=== PATIENT | female | born 1965 | race Caucasian/White ===

== ENCOUNTER 2019-03-26 12:15 | Inpatient (IN) | payer OTHER, SELFPAY ==
[~2019-03-26] VITALS: Ht 162.6 cm; Wt 131.2 kg
[~2019-03-26 12:15] MED LIST: ALKATAB24 PO; AMBI5TAB OR; ANAS1TAB PO; AUGM875T27 PO; CIPR-249 PO; CIPR500T4 OR; CLEO150C PO; COUM10TA OR; COUM1TAB17 OR; DOXY100C PO; FLAG500T OR; IBUP200C25 PO; LORT5TAB PO; MELA300T PO; MELA5TAB31 PO; METR-265 PO; NAPR1TAB41 PO; Nystatin/Triamcinolone TOP; PERC5TAB8 OR; TYLE325T5 PO; VENL37.598 PO; VENL37TA FT; [UNRECOGNIZED DRUG - CODE] PO; oxycodone hcl OR
[2019-03-26] MEDS ORDERED: IBUPROFEN 600 MG TAB PO ONE (12:30)
[2019-03-26 13:52] LABS: BASO % 0.1 % (0.0-1.0); EOS # 0.1 10^3/uL (0.0-0.50); EOS % 0.7 % (0.0-3.0); HEMATOCRIT 40.5 % (36.0-47.0); HEMOGLOBIN 13.1 g/dl (12.0-15.5); LYMPH # 0.7 10^3/uL (1.5-4.5); LYMPH % 7.9 % (24.0-44.0); MEAN CORPUSCULAR HEMOGLOBIN 28.1 pg (27.0-33.0); MEAN CORPUSCULAR HGB CONC 32.3 g/dl (32.0-36.5); MEAN CORPUSCULAR VOLUME 86.9 fl (80.0-96.0); MONO # 0.4 10^3/uL (0.0-0.8); NEUTROPHILS # 7.6 10^3/uL (1.8-7.7); PLATELET COUNT, AUTOMATED 245 10^3/uL (150-450); RED BLOOD COUNT 4.66 10^6/uL (4.00-5.40); WHITE BLOOD COUNT 8.8 10^3/uL (4.0-10.0)
[2019-03-26 14:18] LABS: BLOOD UREA NITROGEN 11 MG/DL (7-18); C REACTIVE PROTEIN QUANTITATIV 5.11 MG/DL (0.00-0.30); CARBON DIOXIDE LEVEL 28 MEQ/L (21-32); CHLORIDE LEVEL 107 MEQ/L (98-107); CREATININE FOR GFR 0.76 MG/DL (0.55-1.30); GLOMERULAR FILTRATION RATE > 60.0 (>51); GLUCOSE, FASTING 87 MG/DL (70-100); POTASSIUM SERUM 3.8 MEQ/L (3.5-5.1); SODIUM LEVEL 140 MEQ/L (136-145)
[2019-03-26 14:28] LABS: ERYTHROCYTE SEDIMENTATION RATE 13 mm/hr (0-30)
[2019-03-26] MEDS ORDERED: VANCOMYCIN HCL 1,000 MG, VIAL MATE ADAPTER 1 EACH in D5W 250 ML IV ONE (15:30)
[2019-03-26] MEDS ORDERED: ACETAMINOPHEN 325 MG TAB PO ONE (15:30)
[2019-03-26] MEDS ORDERED: NS 1,000 ML IV ONE ×2 (15:30)
[2019-03-26] MEDS ORDERED: ISOVUE-370 76% 100ML VIAL (Q9967) As Ordered ONE (15:48)
[2019-03-26] MEDS ORDERED: MEDI1GEL5 TOP (15:58)
[2019-03-26] MEDS ORDERED: NORC1TAB8 PO (15:58)
[2019-03-26] MEDS ORDERED: ACET1TAB55 PO (15:58)
[2019-03-26] MEDS ORDERED: ALKACAP4 PO (15:58)
[2019-03-26] MEDS ORDERED: MORPHINE 4 MG/ML 1ML VIAL/SYRINGE (J2270) IV ONE (16:00)
--- NOTE | 2019-03-26 17:18 | REP ---
CT chest with IV contrast: History: Right breast pain. Aggressive cellulitis. Rule out abscess or mass. Right breast cancer history E status post lumpectomy radiation therapy and chemotherapy. CT contrast dose: 75 ml of intravenous Isovue 370. CT findings: Digital preliminary pneumatic tube operator radiograph demonstrates surgical clips in the right axillary and breast soft tissues. The axial CT images demonstrate a diffuse pattern of dermal thickening in the visualized right breast soft tissues anteriorly. A good portion of the lateral aspect of the right breast is excluded from the field of view of the chest CT. No abscess is appreciated. No axillary adenopathy is seen. No chest wall abscess or inflammation is seen. The visualized breast tissue is fat replaced and unremarkable apart from the apart from the surgical clips and a few benign calcifications. There is no evidence of pleural or pericardial effusion. No hilar or mediastinal mass or adenopathy is seen. There is some left coronary artery vascular calcification noted. Mild diffuse fatty infiltration of the liver is present. No adrenal lesion is seen. The visualized upper abdominal structures are otherwise unremarkable. The lung chambers are clear except for some minimal subpleural fibrosis along the right anterior chest wall. This may be post radiation change. There is a borderline sized lymph node in the left axilla measuring 1.6 x 1.0 x 1.5 cm. No bony destructive lesion is seen. Impression: Dermal thickening in the visualized right breast soft tissues. No evidence of abscess or right axillary adenopathy. Borderline sized left axillary lymph node, 1.6 cm in greatest diameter. Subpleural fibrosis mild in degree in the right lung anteriorly. Otherwise no acute disease. Electronically Signed by Ajit Day MD 03/26/2019 08:23 P
[2019-03-26] MEDS ORDERED: ANEXSIA, NORCO 7.5MG/325MG TABLET(HYDROCODONE/APAP) PO PRN (18:00)
[2019-03-26] MEDS ORDERED: ACETAMINOPHEN TAB 650MG DOSE (2X325MG) PO PRN (18:00)
[2019-03-26] MEDS ORDERED: ONDANSETRON 4MG/2ML VIAL (J2405) IV PRN (18:15)
--- NOTE | 2019-03-26 18:34 | PHACANCOPD ---
PHARMACY VANCOMYCIN DOSING Pt Demographics Demographics Patient Age:53 , Weight:118.180 , Gender: female Adjusted Body Weight Date: 03/26/19, Adjusted Body Weight: [80] Kg Events Past 24 Hours Events Past 24 Hours: YES: Fever; NO: Dialysis, Diuretic Therapy, Change in CrCl, Elevation in WBC, Pending Diagnostics, Pending Procedures, Other Vancomycin Vancomycin indication: R breast cellulitis Vancomycin Target Ranges: 15-20 mcg/ml Vancomycin Load Y/N: Yes Load Dose Date Time Vancomycin Load Dose: 1000mg Date: 03/26 Time: ~16:00 Vancomycin Dose Date: 03/26/19. Current Vancomycin Dose: [1g IV q8h @20] Intermittent Dosing?: No Labs Labs Item Value Date Time C-Reactive Protein, Quantitative 5.11 MG/DL H 03/26/19 1327 Creatinine 0.76 MG/DL 03/26/19 1327 White Blood Count 8.8 10^3/uL 03/26/19 1327 Vital Signs Label Value Date Time Patient Temperature 102.8 degrees F 03/26/19 1216 Temperature Source Oral 03/26/19 1216 Patient Temperature 101.5 degrees F 03/26/19 1341 Temperature Source Oral 03/26/19 1341 Micro Microbiology 03/26/19 Blood Culture, Received Pending 03/26/19 Blood Culture, Received Pending Creatinine Clearance Date:03/26/19. Creatinine Clearance: [>100 ml/min using adjusted BW]. Assessment and Plan Maintaining Current Dose?: Yes Reason for dose change: No Dose Change Pharmacist Note Pharmacist Note Date: 03/26/19. Pharmacist note: pt has been started on Vancomycin for right breast cellulitis. Based on prior consults, she received vancomycin 1g in the ER this afternoon, followed by 1g IV q8h to begin ~4 hours later. Blood cultures are pending. We will continue to monitor and make adjustments as necessary. Ravi Avalos Pharm.D. Mar 26, 2019 18:34
--- NOTE | 2019-03-26 19:22 | HPEPDOC ---
General Date of Admission Mar 26, 2019 at 17:56 Date of Service: Mar 26, 2019 Chief Complaint The patient is a 53-year-old female admitted with a reason for visit of Cellulitis Of Female Breast/ Sirs. Source: Patient Exam Limitations: No limitations Timing/Duration: Day(s) Severity: Moderate Associated Symptoms: Fever, Chills, Nausea History of Present Illness This is a 53-year-old female with a history of breast cancer to her right breast. She underwent lumpectomy, chemotherapy and radiation in 2010. Since then she has had intermittent episodes of recurrent cellulitis to the right breast. She again presents with fever, chills, nausea and itching. She has significant erythema to the right breast. She thinks this may have started from a tiny cut injury from her brassiere. Home Medications Scheduled Melatonin (Melatonin) 5 Mg Tab, 5 MG PO QHS, (Reported) Scheduled PRN Acetaminophen (Acetaminophen) 325 Mg Tablet, 650 MG PO Q6H PRN for PAIN, (Reported) Dm/PE/Acetaminophen/Doxylamine ([place]ang[place] Plus Night Cap) 1 Each Capsule, 2 CAP PO QHS PRN for SLEEP, (Reported) Honey (Medihoney) 15 Ml Gel..ml., 1 APLCT TOP DAILY PRN for WOUND HEALING, (Reported) APPLIED UNDER BREAST Hydrocodone/Acetaminophen ([place] 7.5-325 Tablet) 1 Each Tablet, 1 TAB PO DAILY PRN for PAIN, (Reported) Allergies Coded Allergies: No Known Allergies (Verified , 02/27/11) Past Medical History Medical History Past medical history is remarkable for the aforementioned breast cancer diagnosed and treated in 2010, diverticular disease, history of DVT. Surgical History Surgical history includes the aforementioned lumpectomy, in the past. 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 A-FIB/CHADSVASC A-FIB History Current/History of A-Fib/PAF?: No Current PO Anticoag Therapy: No Review of Systems Other systems 10 system review is otherwise negative except as stated in the brief presentation Physical Examination General Exam: Positive: Alert, Cooperative Eye Exam: Positive: PERRLA, Conjunctiva & lids normal ENT Exam: Positive: Atraumatic, Mucous membr. moist/pink, Pharynx Normal, Tongue Midline Neck Exam: Positive: Supple; Negative: JVD, thyromegaly, +2 carotid pulse wo bruit, Lymphadenopathy, Other Chest Exam: Positive: Clear to auscultation, Normal air movement Heart Exam: Positive: Rate Normal, Regular Rhythm, Normal S1, Normal S2; Negative: Murmurs, Rubs Abdomen Exam: Positive: Normal bowel sounds, Soft, Other (patient has significant central morbid obesity); Negative: Tenderness, Hepatospenomegaly Extremity Exam: Positive: Normal pulses; Negative: Clubbing, Cyanosis, Edema Neuro Exam: Positive: Normal Speech, Cranial Nerves 3-12 NL Psych Exam: Positive: Mental status NL Other physical findings On breast exam, with directed attention to the right breast the breast is circumferentially erythematous. I do not appreciate induration. There is no drainage from the nipple. The erythema extends downward to her right abdomen. There is no streaking toward the axilla. There is no axillary adenopathy, but patient has had lymph node resection. There is about a 2-3 mm shallow cut under the right breast that represents injury from her brassiere. There is no bleeding or drainage from that site. The left breast is normal; there is no erythema or rash or lesions. There are no palpable dominant lesions to either breast. There is some surgical scarring to the right breast to the upper outer quadrant at the site of her prior lumpectomy. Vital Signs Vital Signs Date Time Temp Pulse Resp B/P (MAP) Pulse Ox O2 Delivery O2 Flow Rate FiO2 03/26/19 17:10 99.9 03/26/19 16:57 28 95 03/26/19 15:25 03/26/19 12:16 120 Room Air Laboratory Data Labs 24H Laboratory Tests 2 03/26/19 13:27: Immature Granulocyte % (Auto) 0.3, White Blood Count 8.8, Red Blood Count 4.66, Hemoglobin 13.1, Hematocrit 40.5, Mean Corpuscular Volume 86.9, Mean Corpuscular Hemoglobin 28.1, Mean Corpuscular Hemoglobin Concent 32.3, Red Cell Distribution Width 14.0, Platelet Count 245, Neutrophils (%) (Auto) 86.0H, Lymphocytes (%) (Auto) 7.9L, Monocytes (%) (Auto) 5.0, Eosinophils (%) (Auto) 0.7, Basophils (%) (Auto) 0.1, Neutrophils # (Auto) 7.6, Lymphocytes # (Auto) 0.7L, Monocytes # (Auto) 0.4, Eosinophils # (Auto) 0.1, Basophils # (Auto) 0.0, Nucleated Red Blood Cells % (auto) 0.0, Erythrocyte Sedimentation Rate 13, Anion Gap 5L, Glomerular Filtration Rate > 60.0, Blood Urea Nitrogen 11, Creatinine 0.76, Sodium Level 140, Potassium Level 3.8, Chloride Level 107, Carbon Dioxide Level 28, Calcium Level 9.0, C-Reactive Protein, Quantitative 5.11H CBC/BMP Laboratory Tests 03/26/19 13:27 Red Blood Count 4.66, Mean Corpuscular Volume 86.9, Mean Corpuscular Hemoglobin 28.1, Mean Corpuscular Hemoglobin Concent 32.3, Red Cell Distribution Width 14.0, Neutrophils (%) (Auto) 86.0 H, Lymphocytes (%) (Auto) 7.9 L, Monocytes (%) (Auto) 5.0, Eosinophils (%) (Auto) 0.7, Basophils (%) (Auto) 0.1, Neutrophils # (Auto) 7.6, Lymphocytes # (Auto) 0.7 L, Monocytes # (Auto) 0.4, Eosinophils # (Auto) 0.1, Basophils # (Auto) 0.0, Calcium Level 9.0 Microbiology Microbiology 03/26/19 Blood Culture, Received Pending 03/26/19 Blood Culture, Received Pending Assessment/Plan Right breast cellulitis--this has been recurrent. She is again being initiated on treatment with IV antibiotics in the form of vancomycin as this has been effective in the past. Blood cultures have been obtained. She does not require any wound care. Systemic inflammatory response syndrome.She does not have leukocytosis, but she did have fever and tachycardia. She has received aggressive IV fluid hydration. We will monitor her lactic acid and her blood cultures. C-reactive protein was noted to be elevated at 5.11. Plan / VTE VTE Prophylaxis Ordered?: Yes Plan IVF: Initiate, Continue Diet: Continue Current Activity: Continue Current, Encourage Ambulation Medications: Start Antibiotics Diagnostics: Check Labs, Repeat Labs in AM Anticipated Discharge: Home Advanced Directives: Health Care Proxy (HCP) (the patient wishes to be full CODE STATUS.) LAUREN LIZ MD Mar 26, 2019 19:22
[2019-03-26] MEDS ORDERED: RAMELTEON 8 MG TAB (ROZEREM) PO SCH (21:00)
[2019-03-26] MEDS: NS 1,000 ML IV SCH (21:17)
[2019-03-26 22:00] VITALS: BP 132/89
[2019-03-26] MEDS: ENOXAPARIN 40 MG/0.4 ML SYRINGE (J1650) SC SCH (22:14)
[2019-03-26] MEDS: VANCOMYCIN HCL 1,000 MG, VIAL MATE ADAPTER 1 EACH in D5W/0.2% SODIUM CHLORIDE 250 ML IV SCH (22:15)
[2019-03-27 02:00] VITALS: BP 128/88
[2019-03-27] MEDS: IBUPROFEN 400 MG TAB PO PRN ×2 (02:09→09:35)
[2019-03-27] MEDS: NS 1,000 ML IV SCH ×2 (04:59→10:30)
[2019-03-27] MEDS: VANCOMYCIN HCL 1,000 MG, VIAL MATE ADAPTER 1 EACH in D5W/0.2% SODIUM CHLORIDE 250 ML IV SCH ×2 (04:59→11:48)
[2019-03-27 05:47] LABS: HEMOGLOBIN 11.3 g/dl (12.0-15.5); MEAN CORPUSCULAR HEMOGLOBIN 28.6 pg (27.0-33.0); MEAN CORPUSCULAR HGB CONC 32.3 g/dl (32.0-36.5); MEAN CORPUSCULAR VOLUME 88.6 fl (80.0-96.0); PLATELET COUNT, AUTOMATED 205 10^3/uL (150-450); RED BLOOD COUNT 3.95 10^6/uL (4.00-5.40); WHITE BLOOD COUNT 6.6 10^3/uL (4.0-10.0)
[2019-03-27 06:00] VITALS: BP 126/72
[2019-03-27 06:07] LABS: BLOOD UREA NITROGEN 7 MG/DL (7-18); CALCIUM LEVEL 7.7 MG/DL (8.5-10.1); CARBON DIOXIDE LEVEL 25 MEQ/L (21-32); CHLORIDE LEVEL 110 MEQ/L (98-107); CREATININE FOR GFR 0.58 MG/DL (0.55-1.30); GLOMERULAR FILTRATION RATE > 60.0 (>51); GLUCOSE, FASTING 97 MG/DL (70-100); POTASSIUM SERUM 3.4 MEQ/L (3.5-5.1); SODIUM LEVEL 141 MEQ/L (136-145)
[2019-03-27] MEDS: ENOXAPARIN 40 MG/0.4 ML SYRINGE (J1650) SC SCH (09:33)
[2019-03-27 10:00] VITALS: BP 168/87
[2019-03-27] MEDS ORDERED: NORC1TAB8 PO (12:05)
[2019-03-27] MEDS ORDERED: CLEO300C2 PO (12:05)
[2019-03-27] MEDS ORDERED: BACT800T5 PO (12:05)
--- NOTE | 2019-03-27 21:06 | DS.PDOC ---
Discharge Summary General Date of Admission Mar 26, 2019 at 17:56 Date of Discharge 03/27/2019 Discharge Summary PROCEDURES PERFORMED DURING STAY: None. ADMITTING DIAGNOSES: 1. Recurrent right breast cellulitis. DISCHARGE DIAGNOSES: 1. Recurrent right breast cellulitis, systemic inflammatory response syndrome resolved, history of right breast cancer. COMPLICATIONS/CHIEF COMPLAINT: Cellulitis Of Female Breast/ Sirs. HISTORY OF PRESENT ILLNESS/HOSPITAL COURSE: This is a 53-year-old female with a history of breast cancer to her right breast. She was treated with lumpectomy, chemotherapy and radiation in 2010. Since then she has had intermittent episodes of recurrent cellulitis to her right breast. She again presented with fever, chills, nausea and itching. She also had remarkable erythema. The patient was admitted to the medical floor. She did not have leukocytosis. She was started on a course of vancomycin. Site was evaluated by CT scan which did not show any dominant lesions. There was note of one mildly enlarged lymph node to the right axilla. The patient was feeling well. She has had episodes in the past where she was treated with oral antibiotics. 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 We reviewed her prior record and discharged her to home on oral clindamycin, which was apparently effective in the past.. DISCHARGE MEDICATIONS: Please see below. ALLERGIES: Please see below. PHYSICAL EXAMINATION ON DISCHARGE: VITAL SIGNS: Please see below. GENERAL: No visible distress HEENT: Neck is supple with no adenopathy or thyromegaly, she does not demon strate scleral injection or icterus, oral mucosa is moist CARDIOVASCULAR EXAMINATION: Regular rate and rhythm with a normal S1 and S2 RESPIRATORY EXAMINATION: Good air movement, breath sounds diminished due to body habitus ABDOMINAL EXAMINATION: Soft, nontender, nondistended, remarkable morbid central obesity EXTREMITIES: No peripheral edema or lesions SKIN: Patient has some decreased erythema to the right breast, there is no streaking to the right axilla, there is surgical scar to the right axilla and right upper outer quadrant of the breast, there are otherwise no palpable masses or induration, erythema extends onto her abdomen. NEUROLOGICAL EXAMINATION: No focal neuromotor or sensory deficit PSYCHIATRIC EXAMINATION: Patient has anxiety regarding the care of her . LABORATORY DATA: Please see below. IMAGING: Impression: Dermal thickening in the visualized right breast soft tissues. No evidence of abscess or right axillary adenopathy. Borderline sized left axillary lymph node, 1.6 cm in greatest diameter. Subpleural fibrosis mild in degree in the right lung anteriorly. Otherwise no acute disease. Electronically Signed by Ajit Day MD 03/26/2019 08:23 P PROGNOSIS: ACTIVITY: As tolerated. DIET: As tolerated DISCHARGE PLAN: The patient is medically cleared for discharge to home on oral antibiotics as prescribed. Antibiotic choice was made after review of prior records. She plans to follow-up with the primary care clinic in her neighborhood. We have suggested that she do this next week. DISPOSITION: Home, Self-Care. DISCHARGE INSTRUCTIONS: 1. . ITEMS TO FOLLOWUP ON ON OUTPATIENT: 1. . DISCHARGE CONDITION: Stable, afebrile, nontoxic. TIME SPENT ON DISCHARGE: Greater than 35 minutes. Vital Signs/I&Os Vital Signs Date Time Temp Pulse Resp B/P (MAP) Pulse Ox O2 Delivery O2 Flow Rate FiO2 03/27/19 10:00 97.2 101 20 168/87 (114) 99 03/26/19 12:16 Room Air I&O- Last 24 Hours up to 6 AM 03/27/19 06:00 Intake Total 1485 ml Output Total 200 ml Balance 1285 ml Laboratory Data Labs 24H Laboratory Tests 2 03/27/19 00:34: Bedside Glucose (Misc Panel) 97 03/27/19 05:22: Nucleated Red Blood Cells % (auto) 0.0, Anion Gap 6L, Glomerular Filtration Rate > 60.0, Lactic Acid Level 0.5, Blood Urea Nitrogen 7, Creatinine 0.58, Sodium Level 141, Potassium Level 3.4L, Chloride Level 110H, Carbon Dioxide Level 25, Calcium Level 7.7L CBC/BMP Laboratory Tests 03/27/19 05:22 Red Blood Count 3.95 L, Mean Corpuscular Volume 88.6, Mean Corpuscular Hemoglobin 28.6, Mean Corpuscular Hemoglobin Concent 32.3, Red Cell Distribution Width 14.1, Calcium Level 7.7 L FSBS Laboratory Tests Test 03/27/19 00:34 Range/Units Bedside Glucose (Misc Panel) 97 70-105 MG/DL Microbiology Microbiology 03/26/19 Blood Culture - Preliminary, Resulted No growth after 24 hours . All specim... 03/26/19 Blood Culture - Preliminary, Resulted No growth after 24 hours . All specim... Discharge Medications Scheduled Clindamycin Hcl (Cleocin HCl) 300 Mg Capsule, 1 CAP PO TID Melatonin (Melatonin) 5 Mg Tab, 5 MG PO QHS, (Reported) Sulfamethoxazole/Trimethoprim (Bactrim Ds Tablet) 1 Each Tablet, 1 TAB PO BID Scheduled PRN Acetaminophen (Acetaminophen) 325 Mg Tablet, 650 MG PO Q6H PRN for PAIN, (Reported) Dm/PE/Acetaminophen/Doxylamine (Trang-[place] Plus Night Cap) 1 Each Capsule, 2 CAP PO QHS PRN for SLEEP, (Reported) Honey ([place]) 15 Ml Gel..ml., 1 APLCT TOP DAILY PRN for WOUND HEALING, (Reported) APPLIED UNDER BREAST Hydrocodone/Acetaminophen ([place] 7.5-325 Tablet) 1 Each Tablet, 1 TAB PO DAILY PRN for PAIN Allergies Coded Allergies: No Known Allergies (Verified , 02/27/11) LAUREN LIZ MD Mar 27, 2019 21:06
== END 2019-03-27 13:06 | disposition home or self-care (01) | DRG 385 ==
LOC: M ED 12:15 → M ED INP 17:56 → M MSPAV 20:43
PROVIDERS: ADMIT Internal Medicine; ATTEND Internal Medicine
DX: N61.0 Mastitis without abscess (principal); Z79.899 Other long term (current) drug therapy

== ENCOUNTER 2020-11-21 14:01 | Emergency (ER) | payer OTHER, SELFPAY ==
[~2020-11-21] VITALS: Ht 162.6 cm; Wt 137.4 kg
[~2020-11-21 14:01] MED LIST changes: +ACET1TAB55 PO; +ALKACAP4 PO; +BACT800T5 PO; +CLEO300C2 PO; +MEDI1GEL5 TOP; -MELA5TAB31 PO; +MELA5TAB36 PO; +NORC1TAB8 PO
[2020-11-21] MEDS ORDERED: PRED10TA2 (14:13)
[2020-11-21] MEDS ORDERED: SERT50TA29 (14:13)
[2020-11-21] MEDS ORDERED: MELO15TA28 (14:13)
[2020-11-21] MEDS ORDERED: ONDANSETRON 4MG/2ML VIAL IV ONE (15:05)
[2020-11-21 15:13] LABS: BASO % 0.4 % (0.0-1.0); EOS # 0.1 10^3/uL (0.0-0.5); EOS % 1.3 % (0.0-3.0); HEMATOCRIT 39.6 % (36.0-47.0); HEMOGLOBIN 12.6 g/dl (12.0-15.5); LYMPH # 2.6 10^3/uL (1.5-5.0); LYMPH % 27.7 % (24.0-44.0); MEAN CORPUSCULAR HEMOGLOBIN 27.7 pg (27.0-33.0); MEAN CORPUSCULAR HGB CONC 31.8 g/dl (32.0-36.5); MONO # 0.8 10^3/uL (0.0-0.8); MONO % 8.5 % (2.0-8.0); NEUTROPHILS # 5.7 10^3/uL (1.5-8.5); NEUTROPHILS % 61.9 % (36.0-66.0); PLATELET COUNT, AUTOMATED 357 10^3/uL (150-450); RED BLOOD COUNT 4.55 10^6/uL (4.00-5.40); WHITE BLOOD COUNT 9.2 10^3/uL (4.0-10.0)
[2020-11-21] MEDS: GASTROGRAFIN SOLUTION 30ML PO SCH ×3 (15:29→16:26)
[2020-11-21 15:38] LABS: ALBUMIN 3.5 GM/DL (3.2-5.2); ALT/SGPT 30 U/L (12-78); AMYLASE 27 U/L (25-115); BILIRUBIN,DIRECT 0.1 MG/DL (0.0-0.2); BILIRUBIN,TOTAL 0.5 MG/DL (0.2-1.0); BLOOD UREA NITROGEN 11 MG/DL (7-18); CALCIUM LEVEL 9.2 MG/DL (8.5-10.1); CARBON DIOXIDE LEVEL 26 MEQ/L (21-32); CHLORIDE LEVEL 107 MEQ/L (98-107); CREATININE FOR GFR 0.92 MG/DL (0.55-1.30); GLOMERULAR FILTRATION RATE > 60.0 (>51); GLUCOSE, FASTING 112 MG/DL (70-100); LIPASE 101 U/L (73-393); POTASSIUM SERUM 3.9 MEQ/L (3.5-5.1); SODIUM LEVEL 140 MEQ/L (136-145); TOTAL PROTEIN 7.2 GM/DL (6.4-8.2)
[2020-11-21] MEDS ORDERED: KETOROLAC 30 MG/ML 1ML VIAL IV ONE (16:00)
[2020-11-21 16:17] LABS: INR 0.96
[2020-11-21] MEDS ORDERED: ISOVUE-370 76% 100ML VIAL As Ordered ONE (16:59)
--- NOTE | 2020-11-21 17:54 | REPVR ---
PROCEDURE INFORMATION: Exam: CT Abdomen And Pelvis With Contrast Exam date and time: 11/21/2020 5:07 PM Age: 55 years old Clinical indication: Abdominal pain; Generalized; Additional info: Abd pain HX divertic TECHNIQUE: Imaging protocol: Computed tomography of the abdomen and pelvis with contrast. Radiation optimization: All CT scans at this facility use at least one of these dose optimization techniques: automated exposure control; mA and/or kV adjustment per patient size (includes targeted exams where dose is matched to clinical indication); or iterative reconstruction. Contrast material: ISOVUE 370; Contrast volume: 100 ml; Contrast route: INTRAVENOUS (IV); Other contrast: Oral; COMPARISON: CT ABD PELVIS W/O CONTRAST 05/24/2016 1:32 PM FINDINGS: Liver: Normal. No mass. Gallbladder and bile ducts: The gallbladder is partially contracted. Pancreas: Severe pancreatic atrophy. Spleen: Normal. No splenomegaly. Adrenal glands: Normal. No mass. Kidneys and ureters: Anterior left mid renal 12 mm benign cyst. Stomach and bowel: There is mural thickening of the proximal sigmoid colon, with paracolonic diverticula and pericolonic soft tissue stranding with increased paracolic adipose attenuation. No evidence of perforation or abscess formation. Appendix: The vermiform appendix is normal. Intraperitoneal space: Unremarkable. No free air. No significant fluid collection. Vasculature: Mild aortic atherosclerotic calcification without aneurysm. The iliac arteries show mild bilateral atherosclerotic calcifications without evidence of aneurysm. LAD and RCA calcified coronary atherosclerosis. Lymph nodes: No enlarged lymph nodes. Urinary bladder: Unremarkable as visualized. Reproductive: Unremarkable as visualized. Bones/joints: Unremarkable. No acute fracture. Soft tissues: Unremarkable. IMPRESSION: 1. Uncomplicated sigmoid colonic diverticulitis. 2. Left renal benign cyst. No follow-up imaging is recommended. 3. Coronary atherosclerosis. COMMENTS: Consistent with the [employer]'s Incidental Findings Committee white paper (J Am Grace Radiol 2018): Any incidental renal lesion less than 1 cm or classified as too small to characterize, or any incidental cystic renal lesion characterized as simple-appearing, is likely benign. No follow-up imaging is recommended for these lesions per consensus recommendations based on imaging criteria. Electronically signed by: Jg St On 11/21/2020 17:55:21 PM
[2020-11-21] MEDS ORDERED: CIPROFLOXACIN 500MG TABLET PO ONE (18:15)
[2020-11-21] MEDS ORDERED: metroNIDAZOLE (FLAGYL) 500MG TABLET PO ONE (18:15)
[2020-11-21] MEDS ORDERED: NORCO 5/325MG TABLET (BULK FOR ED) PO ONE (18:15)
[2020-11-21] MEDS ORDERED: CIPR-249 PO (18:21)
[2020-11-21] MEDS ORDERED: FLAG500T PO (18:21)
[2020-11-21] MEDS ORDERED: ZOFR4TAB16 PO (18:21)
[2020-11-21] MEDS ORDERED: HYDR-3715 PO (18:21)
[2020-11-21 18:41] VITALS: BP 156/83
--- NOTE | 2020-11-24 19:33 | ED PDOC ---
Post-Departure Follow-Up ct abd/p formal report faxed to dr stephen irene for fu Chaz Ramirez MD Nov 24, 2020 19:33
== END 2020-11-21 18:58 | disposition home or self-care (01) ==
LOC: M ED 14:01
DX: K57.32 Diverticulitis of large intestine without perforation or abscess without bleeding (principal); N28.1 Cyst of kidney, acquired; R11.2 Nausea with vomiting, unspecified; I25.10 Atherosclerotic heart disease of native coronary artery without angina pectoris; E78.5 Hyperlipidemia, unspecified; Z85.3 Personal history of malignant neoplasm of breast; Z79.899 Other long term (current) drug therapy
CPT/HCPCS: 74177; 80048; 80076; 81001; 82150; 83690; 85025; 85610; 96374; 96375; 99284; J1885; J2405; Q9963; Q9967

== ENCOUNTER 2025-06-30 17:41 | Emergency (ER) | payer MEDICAID, OTHER ==
[~2025-06-30] VITALS: Ht 167.6 cm; Wt 131.4 kg
[~2025-06-30 17:41] MED LIST changes: -DOXY100C PO; +DOXY100C3 PO; +FLAG500T PO; +HYDR-3715 PO; +MELO15TA28; +PRED10TA2; +SERT50TA29; +ZOFR4TAB16 PO
[2025-06-30 18:39] LABS: ALT/SGPT 19 U/L (7.0-40); AST/SGOT 25 U/L (<34)
[2025-06-30 18:50] LABS: BASO # 0.1 10^3/uL (0.0-0.2); BASO % 0.7 % (0.0-1.0); EOS # 0.4 10^3/uL (0.0-0.5); EOS % 5.2 % (0.0-3.0); LYMPH # 2.7 10^3/uL (1.5-5.0); LYMPH % 36.0 % (24.0-44.0); MONO # 0.5 10^3/uL (0.0-0.8); MONO % 7.3 % (2.0-8.0); NEUTROPHILS # 3.7 10^3/uL (1.5-8.5); NEUTROPHILS % 50.7 % (36.0-66.0); PLATELET COUNT, AUTOMATED 304 10^3/uL (150-450)
[2025-06-30] MEDS: NS (Normal Saline) 0.9% 1,000 ML IV ONE (19:52)
[2025-06-30] MEDS: ONDANSETRON 4MG 2ML VIAL IV ONE (19:53)
[2025-06-30] MEDS: ACETAMINOPHEN *IV* 1,000 MG in IV 1 EA IV ONE (19:54)
[2025-06-30 22:00] LABS: CALCIUM LEVEL 9.0 MG/DL (8.5-10.1); CARBON DIOXIDE LEVEL 26 MMOL/L (20-31); CHLORIDE LEVEL 104 MMOL/L (98-107); CREATININE FOR GFR 0.72 MG/DL (0.55-1.30); GLOMERULAR FILTRATION RATE > 90.0 (>51); MAGNESIUM LEVEL 2.0 MG/DL (1.8-2.4); POTASSIUM SERUM 4.2 MMOL/L (3.5-5.1); SODIUM LEVEL 141 MMOL/L (136-145)
[2025-07-01 00:34] LABS: KETONE, URINE AUTO RFX NEGATIVE (NEGATIVE); MUCUS, URINE RFX SMALL (NEGATIVE); NITRITE, URINE AUTO RFX NEGATIVE (NEGATIVE); RBC, URINE AUTO RFX 12 /HPF (0-3); SQUAM EPITHELIAL CELL UR AURFX 2 /HPF (0-6); WBC, URINE AUTO RFX 5 /HPF (0-3)
[2025-07-01 00:45] LABS: LEUKOCYTE ESTERASE UR AUTO RFX TRACE (NEGATIVE)
[2025-07-01] MEDS ORDERED: NITR-67 PO (01:17)
[2025-07-01 01:41] VITALS: O2SAT 98
[2025-07-01 01:45] VITALS: BP 94/57; TEMP 98.1
[2025-07-01] MEDS: NITROFURANTOIN 100 MG CAP PO ONE (01:54)
== END 2025-07-01 02:14 | disposition home or self-care (01) ==
LOC: EDBD 17:41 → M ED 17:41
DX: N39.0 Urinary tract infection, site not specified (principal); F32.A Depression, unspecified; C50.919 Malignant neoplasm of unspecified site of unspecified female breast; Z86.718 Personal history of other venous thrombosis and embolism; Z79.1 Long term (current) use of non-steroidal anti-inflammatories (NSAID); Z79.2 Long term (current) use of antibiotics; Z79.899 Other long term (current) drug therapy
CPT/HCPCS: 71045; 80047; 80048; 80076; 81001; 83690; 83735; 85025; 87086; 87486; 87581; 87633; 87798; 96374; 96375; 99285; J0131; J2405